=== PATIENT | female | born 1940 | race Caucasian/White ===

== ENCOUNTER 2022-09-09 09:28 | Emergency (ER) | payer MEDICARE, OTHER ==
[2022-09-09] MEDS ORDERED: Sodium Chloride 0.9% 10 ML Syringe FLUSH PRN (09:47)
[2022-09-09] MEDS ORDERED: Labetalol 20 MG/4 ML Syringe IVPUSH ONE (09:49)
[2022-09-09 10:24] LABS: ANION GAP 10.8 mmol/L (5-15); CHLORIDE,CL 103 mmol/L (98-107); ESTIMATED GFR 74 mL/min (>=60); SODIUM,NA 139 mmol/L (136-145)
[2022-09-09 10:29] LABS: PTT,PARTIAL THROMBOPLSTIN TIME 26.1 SEC (23.6-33.6)
[2022-09-09] MEDS ORDERED: Aspirin 81 MG Tab.Chew PO ONE (11:23)
== END 2022-09-09 14:30 | disposition short-term general hospital (02) ==
LOC: VM.ED 09:28
DX: H53.2 Diplopia (principal); I10 Essential (primary) hypertension
CPT/HCPCS: 36415; 70450; 71045; 80053; 83735; 83880; 84100; 84443; 84484; 85025; 85610; 85730; 86140; 93005; 93010; 96374; 99284; 99285-25; A9270-GY; J3490